=== PATIENT | male | born 1950 | race Caucasian/White ===

== ENCOUNTER 2022-09-26 08:23 | Outpatient (CLI) | payer MEDICARE, SELFPAY ==
--- NOTE | 2022-09-26 09:01 | W.ANESCHARGE ---
Anesthesia Charges Start Date/Time Anesthesia Start Date: 09/26/22 Anesthesia Start Time: 09:20 Stop Date/Time Anesthesia Stop Date: 09/26/22 Anesthesia Stop Time: 09:38 Summary Extremes of Age - Over 70 or under 1: MDA
--- NOTE | 2022-09-26 09:40 | W.ANESCHARGE ---
Anesthesia Charges Start Date/Time Anesthesia Start Date: 09/26/22 Anesthesia Start Time: 09:20 Stop Date/Time Anesthesia Stop Date: 09/26/22 Anesthesia Stop Time: 09:38
== END 2022-09-26 08:24 | disposition home or self-care (01) ==
PROVIDERS: PCP Family Medicine; Visit Provider Internal Medicine Gastroenterology
DX: Z12.11 Encounter for screening for malignant neoplasm of colon (principal); K57.30 Diverticulosis of large intestine without perforation or abscess without bleeding; Z86.010 Personal history of colon polyps
CPT/HCPCS: 00812; 45378; 99100; J2704